=== PATIENT | male | born 1970 | race Caucasian/White ===

== ENCOUNTER → 2022-10-28 | Day surgery (SDC) | payer BC ==
[2022-10-21 11:10] VITALS: BMI 31.4
[2022-10-21 13:31] LABS: Hemoglobin 13.8 g/dL (13.5-17.5); Mean Corpuscular HGB CONC 33.6 g/dL (32.0-36.0); Mean Corpuscular Hemoglobin 31.4 pg (27.0-33.0); Mean Corpuscular Volume 93.4 fl (81.2-95.1); Mean Platelet Volume 10.2 fl (7.4-10.4); Platelet Count 198 10x3/uL (150-450); RBC Distribution Width 12.6 % (11.5-14.5); White Blood Cell (WBC) Count 4.3 10x3/uL (3.5-10.5)
[2022-10-21 14:14] LABS: Anion Gap 14 mmol/L (10-20); BUN (Urea Nitrogen) 10 mg/dL (8.4-25.7); Calc. Creatinine Clearance 143 mL/min (70-130); Calcium 8.9 mg/dL (7.8-10.44); Carbon Dioxide 25 mmol/L (22-29); Chloride 107 mmol/L (98-107); Estimated GFR 96; Glucose 110 mg/dL (70-105); Potassium 4.9 mmol/L (3.5-5.1); Sodium 141 mmol/L (136-145)
[~2022-10-28] MED LIST: Heparin 10,000 UNITS/ 10 ML VIAL ONE; Heparin 25,000 units/D5W 500 ML ONE; PROPOFOL 200 MG/20 ML VIAL ONE; Phenylephrine 10 MG/ML VIAL ONE; Protamine Sulfate 50 MG/5 ML VIAL ONE; Rocuronium Bromide 10 MG/ML (10ML VIAL) ONE; fentaNYL 50 mcg/mL 1 mL Vial ONE
== END ==
LOC: SDC 07:39
PROVIDERS: ATTEND Internal Medicine Cardiovascular Disease
DX: I48.19 Other persistent atrial fibrillation (principal); I50.22 Chronic systolic (congestive) heart failure; I42.8 Other cardiomyopathies; I11.0 Hypertensive heart disease with heart failure; E78.5 Hyperlipidemia, unspecified; K21.9 Gastro-esophageal reflux disease without esophagitis; E11.9 Type 2 diabetes mellitus without complications; Z98.890 Other specified postprocedural states; Z87.891 Personal history of nicotine dependence; Z79.01 Long term (current) use of anticoagulants; Z79.82 Long term (current) use of aspirin; Z79.899 Other long term (current) drug therapy; Z92.89 Personal history of other medical treatment
CPT/HCPCS: 80048; 85027; 85347; 85610; 93005; 93312; 93656; J1644; J2370; J2704; J2720; J3010

== ENCOUNTER 2022-11-04 16:57 | Observation (INO) | payer BC ==
[2022-11-04 17:30] LABS: #Monocytes 0.5 thou/uL (0.11-0.59); #Neutrophils 6.6 thou/uL (1.40-6.50); %Basophils 0.2 % (0.0-1.0); %Eosinophils 0.2 % (0.0-10.0); %Lymphocytes 13.6 % (21.0-51.0); %Monocytes 5.4 % (0.0-10.0); %Neutrophils 80.1 % (42.0-75.0); Hematocrit 40.9 % (42.0-52.0); Hemoglobin 14.1 g/dL (14.0-18.0); Mean Corpuscular HGB CONC 34.5 g/dL (32.0-36.0); Mean Corpuscular Hemoglobin 31.8 pg (27.0-31.0); Mean Corpuscular Volume 92.1 fl (78.0-98.0); Mean Platelet Volume 9.6 fL (7.4-10.4); Platelet Count 252 10x3/uL (130-400); RBC Distribution Width 12.5 % (11.5-14.5); Red Blood Cell (RBC) Count 4.44 mill/uL (4.70-6.10); White Blood Cell (WBC) Count 8.3 10x3/uL (4.8-10.8)
[2022-11-04 17:58] LABS: ALT (SGPT) 31 U/L (8-55); AST (SGOT) 17 U/L (5-34); Albumin 4.8 g/dL (3.5-5.0); Alkaline Phosphatase 57 U/L (40-110); Anion Gap 8 mmol/L (10-20); BUN (Urea Nitrogen) 12 mg/dL (8.4-25.7); Bilirubin, Total 0.4 mg/dL (0.2-1.2); Calc. Creatinine Clearance 0 mL/min (70-130); Calcium 9.7 mg/dL (7.8-10.44); Carbon Dioxide 30 mmol/L (22-29); Chloride 104 mmol/L (98-107); Estimated GFR 69; Glucose 146 mg/dL (70-105); Lipase 23 U/L (8-78); Potassium 4.4 mmol/L (3.5-5.1); Protein, Total 7.8 g/dL (6.0-8.3); Sodium 138 mmol/L (136-145)
[2022-11-04 18:25] LABS: CKMB 1.1 ng/mL (0-6.6)
[2022-11-04] MEDS ORDERED: Ondansetron ODT 4 MG TAB PO PRN (20:33)
[2022-11-04] MEDS ORDERED: Dextrose 5% in Water 1,000 ML IV PRN (20:33)
[2022-11-04] MEDS ORDERED: Dextrose 50% Abboject 50 ML SYRINGE SLOW IVP PRN (20:33)
[2022-11-04] MEDS ORDERED: Ondansetron PF 4 MG/2 ML Vial IVP PRN (20:33)
[2022-11-04] MEDS ORDERED: HumaLOG 300 UNITS/3 ML VIAL SC PRN ×2 (20:33)
[2022-11-04] MEDS ORDERED: Glucagon 1 MG/ML KIT IM PRN (20:33)
[2022-11-04] MEDS ORDERED: hydrALAZINE 20 MG/ML VIAL SLOW IVP PRN (20:39)
[2022-11-04] MEDS ORDERED: Losartan 25 MG TAB PO SCH (20:45)
[2022-11-04] MEDS ORDERED: Amlodipine 5 MG TAB PO SCH (20:45)
[2022-11-04 23:10] LABS: Critical Call Chem Troponin I RESULT DECREASING; Troponin I 0.399 ng/mL (< 0.028)
[2022-11-05] MEDS ORDERED: Amlodipine 5 MG TAB ONE ×2 (01:53→10:37)
[2022-11-05 04:50] LABS: #Monocytes 0.6 thou/uL (0.11-0.59); #Neutrophils 5.6 thou/uL (1.40-6.50); %Basophils 0.3 % (0.0-1.0); %Eosinophils 0.5 % (0.0-10.0); %Lymphocytes 17.3 % (21.0-51.0); %Monocytes 7.8 % (0.0-10.0); %Neutrophils 73.7 % (42.0-75.0); Hematocrit 39.1 % (42.0-52.0); Hemoglobin 13.4 g/dL (14.0-18.0); Mean Corpuscular HGB CONC 34.3 g/dL (32.0-36.0); Mean Corpuscular Hemoglobin 31.9 pg (27.0-31.0); Mean Corpuscular Volume 93.1 fl (78.0-98.0); Mean Platelet Volume 9.5 fL (7.4-10.4); Platelet Count 220 10x3/uL (130-400); RBC Distribution Width 12.4 % (11.5-14.5); White Blood Cell (WBC) Count 7.6 10x3/uL (4.8-10.8)
[2022-11-05 05:21] LABS: Anion Gap 13 mmol/L (10-20); BUN (Urea Nitrogen) 13 mg/dL (8.4-25.7); Calc. Creatinine Clearance 128 mL/min (70-130); Calcium 9.2 mg/dL (7.8-10.44); Carbon Dioxide 28 mmol/L (22-29); Chloride 103 mmol/L (98-107); Estimated GFR 84; Glucose 180 mg/dL (70-105); Potassium 4.6 mmol/L (3.5-5.1); Sodium 139 mmol/L (136-145)
[2022-11-05] MEDS: Amlodipine 5 MG TAB PO SCH (10:43)
[2022-11-05] MEDS: Apixaban 5 MG TAB PO SCH ×2 (12:16→20:26)
[2022-11-05 14:24] VITALS: BMI 30.4
[2022-11-05] MEDS: Losartan 25 MG TAB PO SCH (20:26)
[2022-11-05] MEDS ORDERED: Losartan 25 MG TAB PO SCH (21:00)
[2022-11-05] MEDS ORDERED: Rosuvastatin 5 MG TAB PO SCH (21:00)
[2022-11-06 03:57] VITALS: TEMP 97.8
[2022-11-06] MEDS: Apixaban 5 MG TAB PO SCH (08:34)
[2022-11-06] MEDS: Losartan 25 MG TAB PO SCH (08:34)
[2022-11-06] MEDS: Amlodipine 5 MG TAB PO SCH (08:35)
[2022-11-06] MEDS ORDERED: DILTIAZEM HCL 120 MG PO SCH (09:00)
[2022-11-06] MEDS ORDERED: metFORMIN 500 MG TAB PO SCH (09:00)
[2022-11-06] MEDS ORDERED: glyBURIDE 5 MG TAB PO SCH (09:00)
[2022-11-06] MEDS ORDERED: Aspirin 81 mg Enteric Coated Tablet PO SCH (09:00)
[2022-11-06 13:18] VITALS: BP 143/92
== END 2022-11-06 15:50 | disposition home or self-care (01) ==
LOC: ERS 16:57 → ERHOLD 20:25 → 2SW 11-05 11:52
PROVIDERS: ADMIT Student in an Organized Health Care Education/Training Program; ATTEND Family Medicine
DX: I16.0 Hypertensive urgency (principal); I11.0 Hypertensive heart disease with heart failure; I50.9 Heart failure, unspecified; R77.8 Other specified abnormalities of plasma proteins; E78.5 Hyperlipidemia, unspecified; R07.9 Chest pain, unspecified; E11.9 Type 2 diabetes mellitus without complications; K21.9 Gastro-esophageal reflux disease without esophagitis; I48.91 Unspecified atrial fibrillation; Z87.891 Personal history of nicotine dependence; Z79.84 Long term (current) use of oral hypoglycemic drugs; Z79.01 Long term (current) use of anticoagulants; Z79.82 Long term (current) use of aspirin; Z79.899 Other long term (current) drug therapy
CPT/HCPCS: 36415; 36416; 71045; 80048; 80053; 82553; 83690; 83880; 84484; 85025; 93005; 96374; G0378; J0360

== ENCOUNTER 2024-12-03 00:39 | Inpatient (IN) | payer OTHER ==
[2024-12-03] MEDS ORDERED: HYDROcodone/Acetaminophen 10/325 mg Tablet ONE (01:32)
[2024-12-03] MEDS ORDERED: Ketorolac Tromethamine 30 MG (1 mL) VIAL ONE (05:32)
[2024-12-03 05:39] LABS: #Basophils 0.03 10x3/uL (0.0-0.2); #Eosinophils 0.09 10x3/uL (0.0-0.7); #Monocytes 0.33 10x3/uL (0.11-0.59); #Neutrophils 1.86 10x3/uL (1.40-6.50); %Basophils 0.7 % (0.0-1.0); %Eosinophils 2.2 % (0.0-10.0); %Lymphocytes 42.7 % (21.0-51.0); %Monocytes 8.1 % (0.0-10.0); %Neutrophils 46.1 % (42.0-75.0); Hematocrit 35.5 % (42.0-52.0); Hemoglobin 12.3 g/dL (14.0-18.0); Mean Corpuscular Hemoglobin 31.3 pg (27.0-31.0); Mean Corpuscular Volume 90.3 fL (78.0-98.0); Platelet Count 182 10x3/uL (130-400); Red Blood Cell (RBC) Count 3.93 mill/uL (4.70-6.10); White Blood Cell (WBC) Count 4.05 10x3/uL (4.8-10.8)
[2024-12-03 05:52] LABS: ALT (SGPT) 28 U/L (Less than 45); AST (SGOT) 26 U/L (11-34); Albumin 4.1 g/dL (3.1-4.5); Alkaline Phosphatase 35 U/L (40-110); Anion Gap 12 mmol/L (10-20); BUN (Urea Nitrogen) 10 mg/dL (8.4-25.7); Bilirubin, Total 0.5 mg/dL (0.3-1.2); Calc. Creatinine Clearance 0 mL/min (70-130); Calcium 8.7 mg/dL (7.8-10.44); Carbon Dioxide 26 mmol/L (22-29); Chloride 98 mmol/L (98-107); Globulin 2.4 g/dL (2.4-3.5); Glucose 105 mg/dL (70-105); Potassium 3.2 mmol/L (3.5-5.1); Sodium 133 mmol/L (136-145)
[2024-12-03] MEDS ORDERED: Gabapentin 300 MG CAP ONE (06:24)
[2024-12-03] MEDS ORDERED: Melatonin 3 MG TAB PO PRN (10:11)
[2024-12-03] MEDS ORDERED: Bisacodyl 10 MG SUPP PR PRN (10:11)
[2024-12-03] MEDS ORDERED: Glucagon 1 MG/ML KIT IM PRN (10:11)
[2024-12-03] MEDS ORDERED: Ondansetron PF 4 MG/2 ML Vial IVP PRN (10:11)
[2024-12-03] MEDS ORDERED: Dextrose 50% Abboject 50 ML SYRINGE SLOW IVP PRN (10:11)
[2024-12-03] MEDS: Rosuvastatin 5 MG TAB PO SCH (11:07)
[2024-12-03] MEDS: Losartan 25 MG TAB PO SCH (11:07)
[2024-12-03] MEDS: Aspirin 81 mg Enteric Coated Tablet PO SCH (11:07)
[2024-12-03] MEDS: Metoprolol Succinate XL 50 MG ER.TAB PO SCH (11:07)
[2024-12-03] MEDS: Apixaban 5 MG TAB PO SCH ×2 (11:07→20:54)
[2024-12-03] MEDS: metFORMIN XR 500 MG ER.TAB PO SCH (18:24)
[2024-12-03] MEDS: Acetaminophen 325 MG TAB PO PRN (18:25)
[2024-12-03 19:59] VITALS: BMI 30.9
[2024-12-03] MEDS: Metoprolol Succinate XL 100 MG ER.TAB PO SCH (20:55)
[2024-12-03] MEDS ORDERED: Metoprolol Succinate XL 50 MG ER.TAB PO SCH (21:00)
[2024-12-04 06:08] LABS: #Basophils 0.03 10x3/uL (0.0-0.2); #Eosinophils 0.09 10x3/uL (0.0-0.7); #Monocytes 0.34 10x3/uL (0.11-0.59); #Neutrophils 2.05 10x3/uL (1.40-6.50); %Basophils 0.8 % (0.0-1.0); %Eosinophils 2.3 % (0.0-10.0); %Lymphocytes 36.8 % (21.0-51.0); %Monocytes 8.5 % (0.0-10.0); %Neutrophils 51.3 % (42.0-75.0); Hematocrit 38.1 % (42.0-52.0); Hemoglobin 13.0 g/dL (14.0-18.0); Mean Corpuscular Hemoglobin 31.1 pg (27.0-31.0); Mean Corpuscular Volume 91.1 fL (78.0-98.0); Platelet Count 165 10x3/uL (130-400); Red Blood Cell (RBC) Count 4.18 mill/uL (4.70-6.10); White Blood Cell (WBC) Count 3.99 10x3/uL (4.8-10.8)
[2024-12-04 06:35] LABS: Anion Gap 10 mmol/L (10-20); BUN (Urea Nitrogen) 14 mg/dL (8.4-25.7); Calc. Creatinine Clearance 112 mL/min (70-130); Calcium 8.7 mg/dL (7.8-10.44); Carbon Dioxide 29 mmol/L (22-29); Chloride 104 mmol/L (98-107); Glucose 152 mg/dL (70-105); Potassium 4.4 mmol/L (3.5-5.1); Sodium 139 mmol/L (136-145)
[2024-12-04] MEDS ORDERED: Non-Formulary Item 1 EACH (Omeprazole [Omeprazole] 20 MG Tablet.Dr) PO SCH (09:00)
[2024-12-04] MEDS: Metoprolol Succinate XL 50 MG ER.TAB PO SCH (09:34)
[2024-12-04] MEDS: Losartan 25 MG TAB PO SCH (09:34)
[2024-12-04] MEDS: Pantoprazole 40 MG DR.TAB PO SCH (09:37)
[2024-12-04] MEDS: Aspirin 81 mg Enteric Coated Tablet PO SCH (09:37)
[2024-12-04] MEDS: Rosuvastatin 5 MG TAB PO SCH (09:37)
[2024-12-04] MEDS ORDERED: HYDROcodone/Acetaminophen 10/325 mg Tablet PO PRN (10:06)
[2024-12-04] MEDS ORDERED: oxyCODONE 5 MG TAB PO PRN (14:00)
[2024-12-04] MEDS: Acetaminophen 500 MG TAB PO SCH (15:06)
[2024-12-04] MEDS: Gabapentin 300 MG CAP PO SCH (15:08)
[2024-12-04] MEDS: oxyCODONE 5 MG TAB PO PRN (18:01)
[2024-12-05 05:32] LABS: #Basophils 0.03 10x3/uL (0.0-0.2); #Eosinophils 0.09 10x3/uL (0.0-0.7); #Monocytes 0.37 10x3/uL (0.11-0.59); #Neutrophils 1.58 10x3/uL (1.40-6.50); %Basophils 0.8 % (0.0-1.0); %Eosinophils 2.5 % (0.0-10.0); %Lymphocytes 42.5 % (21.0-51.0); %Monocytes 10.2 % (0.0-10.0); %Neutrophils 43.7 % (42.0-75.0); Hematocrit 36.6 % (42.0-52.0); Hemoglobin 12.3 g/dL (14.0-18.0); Mean Corpuscular Hemoglobin 31.2 pg (27.0-31.0); Mean Corpuscular Volume 92.9 fL (78.0-98.0); Platelet Count 169 10x3/uL (130-400); Red Blood Cell (RBC) Count 3.94 mill/uL (4.70-6.10); White Blood Cell (WBC) Count 3.62 10x3/uL (4.8-10.8)
[2024-12-05 05:44] LABS: Anion Gap 9 mmol/L (10-20); BUN (Urea Nitrogen) 12 mg/dL (8.4-25.7); Calc. Creatinine Clearance 127 mL/min (70-130); Calcium 8.5 mg/dL (7.8-10.44); Carbon Dioxide 31 mmol/L (22-29); Chloride 105 mmol/L (98-107); Glucose 142 mg/dL (70-105); Potassium 3.9 mmol/L (3.5-5.1); Sodium 141 mmol/L (136-145)
[2024-12-06 07:19] LABS: #Basophils Less than 0.03 10x3/uL (0.0-0.2); #Eosinophils 0.11 10x3/uL (0.0-0.7); #Monocytes 0.34 10x3/uL (0.11-0.59); #Neutrophils 1.75 10x3/uL (1.40-6.50); %Basophils 0.6 % (0.0-1.0); %Eosinophils 3.2 % (0.0-10.0); %Lymphocytes 36.1 % (21.0-51.0); %Monocytes 9.7 % (0.0-10.0); %Neutrophils 50.1 % (42.0-75.0); Hematocrit 37.1 % (42.0-52.0); Hemoglobin 12.8 g/dL (14.0-18.0); Mean Corpuscular Hemoglobin 31.4 pg (27.0-31.0); Mean Corpuscular Volume 90.9 fL (78.0-98.0); Platelet Count 170 10x3/uL (130-400); Red Blood Cell (RBC) Count 4.08 mill/uL (4.70-6.10); White Blood Cell (WBC) Count 3.49 10x3/uL (4.8-10.8)
[2024-12-06 07:33] LABS: Anion Gap 12 mmol/L (10-20); BUN (Urea Nitrogen) 11 mg/dL (8.4-25.7); Calc. Creatinine Clearance 137 mL/min (70-130); Calcium 8.8 mg/dL (7.8-10.44); Carbon Dioxide 27 mmol/L (22-29); Chloride 105 mmol/L (98-107); Glucose 162 mg/dL (70-105); Potassium 4.2 mmol/L (3.5-5.1); Sodium 140 mmol/L (136-145)
[2024-12-06] MEDS ORDERED: Vancomycin 1 GM in Premix 1 BAG IVPB SCH (09:00)
[2024-12-06] MEDS: Senokot S 8.6-50 MG TAB PO PRN (09:19)
[2024-12-06] MEDS: Senokot S 8.6-50 MG TAB PO SCH ×2 (16:12→21:03)
[2024-12-06] MEDS: Bisacodyl 10 MG SUPP PR SCH (16:12)
[2024-12-07 05:01] LABS: #Basophils 0.03 10x3/uL (0.0-0.2); #Eosinophils 0.12 10x3/uL (0.0-0.7); #Monocytes 0.38 10x3/uL (0.11-0.59); #Neutrophils 1.87 10x3/uL (1.40-6.50); %Basophils 0.8 % (0.0-1.0); %Eosinophils 3.0 % (0.0-10.0); %Lymphocytes 39.3 % (21.0-51.0); %Monocytes 9.6 % (0.0-10.0); %Neutrophils 47.0 % (42.0-75.0); Hematocrit 36.0 % (42.0-52.0); Hemoglobin 12.4 g/dL (14.0-18.0); Mean Corpuscular Hemoglobin 31.6 pg (27.0-31.0); Mean Corpuscular Volume 91.8 fL (78.0-98.0); Platelet Count 167 10x3/uL (130-400); Red Blood Cell (RBC) Count 3.92 mill/uL (4.70-6.10); White Blood Cell (WBC) Count 3.97 10x3/uL (4.8-10.8)
[2024-12-07 05:20] LABS: Anion Gap 10 mmol/L (10-20); BUN (Urea Nitrogen) 14 mg/dL (8.4-25.7); Calc. Creatinine Clearance 133 mL/min (70-130); Calcium 8.8 mg/dL (7.8-10.44); Carbon Dioxide 30 mmol/L (22-29); Chloride 106 mmol/L (98-107); Glucose 184 mg/dL (70-105); Potassium 4.0 mmol/L (3.5-5.1); Sodium 142 mmol/L (136-145)
[2024-12-07] MEDS ORDERED: Vancomycin 1 GM in Premix 1 BAG IVPB SCH (12:45)
[2024-12-08 06:17] LABS: #Basophils Less than 0.03 10x3/uL (0.0-0.2); #Eosinophils 0.11 10x3/uL (0.0-0.7); #Monocytes 0.34 10x3/uL (0.11-0.59); #Neutrophils 1.82 10x3/uL (1.40-6.50); %Basophils 0.6 % (0.0-1.0); %Eosinophils 3.0 % (0.0-10.0); %Lymphocytes 36.5 % (21.0-51.0); %Monocytes 9.4 % (0.0-10.0); %Neutrophils 50.2 % (42.0-75.0); Hematocrit 35.2 % (42.0-52.0); Hemoglobin 11.9 g/dL (14.0-18.0); Mean Corpuscular Hemoglobin 31.1 pg (27.0-31.0); Mean Corpuscular Volume 91.9 fL (78.0-98.0); Platelet Count 170 10x3/uL (130-400); Red Blood Cell (RBC) Count 3.83 mill/uL (4.70-6.10); White Blood Cell (WBC) Count 3.62 10x3/uL (4.8-10.8)
[2024-12-08 06:36] LABS: Anion Gap 8 mmol/L (10-20); BUN (Urea Nitrogen) 10 mg/dL (8.4-25.7); Calc. Creatinine Clearance 142 mL/min (70-130); Calcium 8.9 mg/dL (7.8-10.44); Carbon Dioxide 30 mmol/L (22-29); Chloride 107 mmol/L (98-107); Glucose 207 mg/dL (70-105); Potassium 3.7 mmol/L (3.5-5.1); Sodium 141 mmol/L (136-145)
[2024-12-08] MEDS ORDERED: Rocuronium Bromide 10 MG/ML (10ML VIAL) ONE (09:47)
[2024-12-08] MEDS ORDERED: fentaNYL PF 100 MCG/2 ML SYRINGE ONE ×2 (09:48→12:55)
[2024-12-08] MEDS ORDERED: Lidocaine 2% 6 ML (Jelly) SYR ONE (09:48)
[2024-12-08] MEDS ORDERED: PROPOFOL 20 ML ONE (09:48)
[2024-12-08] MEDS ORDERED: CEFAZOLIN 2 GM VIAL ONE (10:30)
[2024-12-08] MEDS ORDERED: Vancomycin 1 GM/200 ML (PREMIX FOIL) BAG ONE (10:30)
[2024-12-08] MEDS ORDERED: Ondansetron PF 4 MG/2 ML Vial IVP PRN ×3 (10:45→17:10)
[2024-12-08] MEDS ORDERED: diphenhydrAMINE 25 MG CAP PO PRN ×3 (10:45→17:10)
[2024-12-08] MEDS ORDERED: diphenhydrAMINE 50 MG/ML VIAL IVP PRN ×2 (10:45→14:45)
[2024-12-08] MEDS ORDERED: HYDROcodone/Acetaminophen 5/325 mg Tablet PO PRN ×2 (10:45)
[2024-12-08] MEDS ORDERED: diphenhydrAMINE 50 MG/ML VIAL IM PRN ×3 (10:45→17:10)
[2024-12-08] MEDS ORDERED: FENTANYL 500 MCG/10 ML VIAL 500 MCG, Bupivacaine 0.75% 10 ML in Sodium Chloride 0.9% 80 ML EPIDURAL SCH (10:45)
[2024-12-08] MEDS ORDERED: Tranexamic Acid 1,000 MG/10 ML VIAL ONE (12:18)
[2024-12-08] MEDS ORDERED: Ketamine In 0.9 % NaCl 50 MG/5 ML SYRINGE ONE (12:30)
[2024-12-08] MEDS ORDERED: Lidocaine 1% PF 5 ML VIAL ONE (12:30)
[2024-12-08] MEDS ORDERED: Ondansetron PF 4 MG/2 ML Vial ONE (13:20)
[2024-12-08] MEDS ORDERED: HYDROmorphone 2 MG/ML VIAL ONE (13:31)
[2024-12-08] MEDS ORDERED: PHENYLEPHRINE-NS 100 MCG/ML 10 ML SYRINGE ONE (13:31)
[2024-12-08] MEDS ORDERED: Glycopyrrolate 0.2 MG/ML 5 ML SYRINGE ONE (14:14)
[2024-12-08] MEDS ORDERED: NEOSTIGMINE 3 MG/3 ML SYRINGE ONE (14:14)
[2024-12-08] MEDS ORDERED: HYDROmorphone 0.5 MG/0.5 ML SYRINGE ONE ×2 (14:42→15:02)
[2024-12-08] MEDS ORDERED: fentaNYL Citrate/PF 55 ML IV SCH (14:45)
[2024-12-08] MEDS ORDERED: Communication Order-Pharmacy FS SCH ×2 (14:45→17:15)
[2024-12-08] MEDS ORDERED: HYDROcodone/Acetaminophen 10/325 mg Tablet PO PRN (15:10)
[2024-12-08] MEDS ORDERED: HYDROmorphone HCl/0.9% NaCl/PF 30 ML IV SCH (17:15)
[2024-12-08] MEDS: HYDROmorphone HCl/0.9% NaCl/PF 30 ML IV SCH (17:56)
[2024-12-08] MEDS: Ketorolac Tromethamine 30 MG (1 mL) VIAL IVP SCH (18:00)
[2024-12-08] MEDS: Ferrous Gluconate 324 MG TAB PO SCH (19:57)
[2024-12-08 20:03] LABS: #Basophils Less than 0.03 10x3/uL (0.0-0.2); #Eosinophils Less than 0.03 10x3/uL (0.0-0.7); #Monocytes 0.56 10x3/uL (0.11-0.59); #Neutrophils 8.87 10x3/uL (1.40-6.50); %Basophils 0.1 % (0.0-1.0); %Eosinophils 0.1 % (0.0-10.0); %Lymphocytes 4.5 % (21.0-51.0); %Monocytes 5.6 % (0.0-10.0); %Neutrophils 89.4 % (42.0-75.0); Hematocrit 38.2 % (42.0-52.0); Hemoglobin 12.9 g/dL (14.0-18.0); Mean Corpuscular Hemoglobin 31.4 pg (27.0-31.0); Mean Corpuscular Volume 92.9 fL (78.0-98.0); Platelet Count 198 10x3/uL (130-400); Red Blood Cell (RBC) Count 4.11 mill/uL (4.70-6.10); White Blood Cell (WBC) Count 9.93 10x3/uL (4.8-10.8)
[2024-12-08 20:27] LABS: Anion Gap 15 mmol/L (10-20); BUN (Urea Nitrogen) 12 mg/dL (8.4-25.7); Calc. Creatinine Clearance 133 mL/min (70-130); Calcium 8.7 mg/dL (7.8-10.44); Carbon Dioxide 28 mmol/L (22-29); Chloride 104 mmol/L (98-107); Glucose 244 mg/dL (70-105); Magnesium 1.8 mg/dL (1.6-2.6); Potassium 4.7 mmol/L (3.5-5.1); Sodium 142 mmol/L (136-145)
[2024-12-08] MEDS: Metoprolol Tartrate 5 MG (5 mL) VIAL IVP SCH ×2 (21:22→22:45)
[2024-12-08] MEDS: Ondansetron PF 4 MG/2 ML Vial IVP PRN (22:56)
[2024-12-09] MEDS: Diltiazem HCl/D5W 125 MG in Premix 1 BAG IVPB SCH (00:09)
[2024-12-09 03:40] LABS: #Basophils 0.03 10x3/uL (0.0-0.2); #Eosinophils Less than 0.03 10x3/uL (0.0-0.7); #Monocytes 0.90 10x3/uL (0.11-0.59); #Neutrophils 8.13 10x3/uL (1.40-6.50); %Basophils 0.3 % (0.0-1.0); %Eosinophils 0.0 % (0.0-10.0); %Lymphocytes 7.8 % (21.0-51.0); %Monocytes 9.1 % (0.0-10.0); %Neutrophils 82.5 % (42.0-75.0); Hematocrit 33.9 % (42.0-52.0); Hemoglobin 11.6 g/dL (14.0-18.0); Mean Corpuscular Hemoglobin 31.6 pg (27.0-31.0); Mean Corpuscular Volume 92.4 fL (78.0-98.0); Platelet Count 201 10x3/uL (130-400); Red Blood Cell (RBC) Count 3.67 mill/uL (4.70-6.10); White Blood Cell (WBC) Count 9.86 10x3/uL (4.8-10.8)
[2024-12-09 03:58] LABS: Anion Gap 13 mmol/L (10-20); BUN (Urea Nitrogen) 16 mg/dL (8.4-25.7); Calc. Creatinine Clearance 125 mL/min (70-130); Calcium 8.2 mg/dL (7.8-10.44); Carbon Dioxide 26 mmol/L (22-29); Chloride 103 mmol/L (98-107); Glucose 225 mg/dL (70-105); Potassium 4.6 mmol/L (3.5-5.1); Sodium 137 mmol/L (136-145)
[2024-12-09] MEDS: Calcium Carbonate 500 MG ChewTAB PO PRN (05:09)
[2024-12-09] MEDS: Multivitamin W/ Minerals 1 TAB PO SCH (09:12)
[2024-12-09] MEDS: Metoprolol Succinate XL 50 MG ER.TAB PO SCH (09:28)
[2024-12-09] MEDS: HYDROcodone/Acetaminophen 10/325 mg Tablet PO PRN (11:02)
[2024-12-09] MEDS: Apixaban 5 MG TAB PO SCH (21:08)
[2024-12-10 04:20] LABS: #Basophils 0.03 10x3/uL (0.0-0.2); #Eosinophils 0.17 10x3/uL (0.0-0.7); #Monocytes 0.52 10x3/uL (0.11-0.59); #Neutrophils 3.43 10x3/uL (1.40-6.50); %Basophils 0.5 % (0.0-1.0); %Eosinophils 3.1 % (0.0-10.0); %Lymphocytes 24.7 % (21.0-51.0); %Monocytes 9.4 % (0.0-10.0); %Neutrophils 61.9 % (42.0-75.0); Hematocrit 29.7 % (42.0-52.0); Hemoglobin 9.9 g/dL (14.0-18.0); Mean Corpuscular Hemoglobin 31.4 pg (27.0-31.0); Mean Corpuscular Volume 94.3 fL (78.0-98.0); Platelet Count 141 10x3/uL (130-400); Red Blood Cell (RBC) Count 3.15 mill/uL (4.70-6.10); White Blood Cell (WBC) Count 5.54 10x3/uL (4.8-10.8)
[2024-12-10 04:58] LABS: Anion Gap 11 mmol/L (10-20); BUN (Urea Nitrogen) 15 mg/dL (8.4-25.7); Calc. Creatinine Clearance 118 mL/min (70-130); Calcium 8.3 mg/dL (7.8-10.44); Carbon Dioxide 27 mmol/L (22-29); Chloride 104 mmol/L (98-107); Glucose 242 mg/dL (70-105); Potassium 4.1 mmol/L (3.5-5.1); Sodium 138 mmol/L (136-145)
[2024-12-10] MEDS: Metoprolol Succinate XL 50 MG ER.TAB PO SCH (08:58)
[2024-12-10] MEDS: Metoprolol Succinate XL 100 MG ER.TAB PO SCH (20:07)
[2024-12-11 04:03] VITALS: TEMP 98.4
[2024-12-11] MEDS: HYDROcodone/Acetaminophen 10/325 mg Tablet PO PRN (06:06)
[2024-12-11 08:26] VITALS: BP 108/70
== END 2024-12-11 09:45 | disposition home health service (06) | DRG 470 ==
LOC: ERS 00:39 → T4-B 09:29 → OBSVTOIN 12-05 13:58 → SURG A 12-08 16:32 → PCU 12-08 20:59
PROVIDERS: ADMIT Internal Medicine; ATTEND Hospitalist
PROC: 3E03329 Introduction of Other Anti-infective into Peripheral Vein, Percutaneous Approach (ICD-10-PCS; 2024-12-06)
PROC: 3E033XZ Introduction of Vasopressor into Peripheral Vein, Percutaneous Approach (ICD-10-PCS; 2024-12-06)
PROC: 0SRB03Z Replacement of Left Hip Joint with Ceramic Synthetic Substitute, Open Approach (ICD-10-PCS; principal; 2024-12-08)
DX: M16.52 Unilateral post-traumatic osteoarthritis, left hip (principal); M87.252 Osteonecrosis due to previous trauma, left femur; I42.9 Cardiomyopathy, unspecified; I48.21 Permanent atrial fibrillation; I50.22 Chronic systolic (congestive) heart failure; K56.7 Ileus, unspecified; I11.0 Hypertensive heart disease with heart failure; E11.9 Type 2 diabetes mellitus without complications; E78.5 Hyperlipidemia, unspecified; K59.00 Constipation, unspecified; I25.10 Atherosclerotic heart disease of native coronary artery without angina pectoris; E87.6 Hypokalemia; K21.9 Gastro-esophageal reflux disease without esophagitis; Z98.890 Other specified postprocedural states; Z98.1 Arthrodesis status; Z79.01 Long term (current) use of anticoagulants; Z79.899 Other long term (current) drug therapy; Z79.82 Long term (current) use of aspirin; Z87.891 Personal history of nicotine dependence
CPT/HCPCS: 36415; 36416; 72170; 80048; 80053; 83036; 83735; 85025; 86141; 87081; 93005; 93010; C1713; C1776; G0378; J1100; J1171; J1815; J1885; J2270; J2405; J2704; J3010; J3372; J3373; J3490; J7030